=== PATIENT | male | born 1975 | race Caucasian/White ===

== ENCOUNTER 2020-07-10 13:17 | Outpatient (CLI) | payer OTHER, SELFPAY ==
--- NOTE | ~2020-07-10 | US_ITS ---
EXAMINATION: US soft tissue head and neck DATE: 07/10/2020 13:37 INDICATION: Posterior neck lump. TECHNIQUE: Multiple grayscale ultrasound images of the neck were obtained. COMPARISON: None FINDINGS: There is no abnormal mass or lymphadenopathy in the patient's area of concern in the glue maker bone ior neck. IMPRESSION: 1. No abnormal mass or lymphadenopathy in the patient's area of concern in the posterior neck. Reviewed, dictated and finalized at location A. [facility]
== END 2020-07-10 13:18 ==
PROVIDERS: PCP Physician Assistant; Visit Provider Physician Assistant
DX: R22.9 Localized swelling, mass and lump, unspecified (principal)
CPT/HCPCS: 76536